=== PATIENT | female | born 1985 | race African-American/Black ===

== ENCOUNTER 2018-02-08 16:25 | Emergency (ER) | payer SELFPAY ==
[~2018-02-08] VITALS: Ht 175.3 cm; Wt 81.4 kg
[2018-02-08 16:27] VITALS: BP 129/76
[2018-02-08] MEDS ORDERED: inhaler IH (16:31)
== END 2018-02-08 19:10 | disposition left against medical advice (07) ==
LOC: EMS 16:26
DX: R06.02 Shortness of breath (principal); Z53.21 Procedure and treatment not carried out due to patient leaving prior to being seen by health care provider